=== PATIENT | female | born 1935 | race Asian ===

== ENCOUNTER 2019-10-21 14:40 | Emergency (ER) | payer MEDICARE, OTHER ==
[~2019-10-21] VITALS: Ht 165.1 cm; Wt 58.0 kg
--- NOTE | 2019-10-21 15:06 | NUR ---
THIS IS AN 84 YO FEMALE BIB EMS FROM [facility] FOR MGL[facility] DOWN ELEVATOR, DENIES LOC, DENIES MIDLINE NECK OR BACK PAIN. A&OX4. TAKES COUMADIN FOR POSSIBLE AFIB (PATIENT UNSURE OF WHAT ARRHYTHMIA SHE HAS, STATES "IT'S IRREGULAR"), DENIES ANY HX OF TX OR STROKE. C/O PAIN TO LEFT SIDE OF HEAD, NO DEFORMITY NOTED, TENDER TO PALPATION. BRUISES/ABRASIONS NOTED TO RIGHT HIP, LEFT KNEE, AND BILATERAL ELBOWS. MONITORING IN PLACE, VSS, NADN. CALL LIGHT IN REACH.
[2019-10-21] MEDS ORDERED: HYDROcodone/APAP 5/325 TABLET ONE (15:09)
--- NOTE | 2019-10-21 15:12 | NUR ---
PATIENT TO IMAGING
[2019-10-21] MEDS ORDERED: HYDROcodone/APAP 5/325 TABLET PO ONE (15:30)
--- NOTE | 2019-10-21 15:39 | NUR ---
PATIENT MEDICATED PER EMAR, TOELRATED WELL
[2019-10-21 16:19] LABS: INTERNATIONAL NORMALIZED RATIO 3.4 (0.93-1.1); PROTHROMBIN TIME 35.5 Seconds (9.6-11.5)
[2019-10-21 16:30] VITALS: BP 166/108
--- NOTE | 2019-10-21 17:14 | NUR ---
Patient/Caregiver given discharge instructions and they have confirmed that they understand the instructions. Patient ambulatory with steady gait in room, wheeled to discharge for patient comfort
== END 2019-10-21 17:16 | disposition home or self-care (01) ==
LOC: ED 17:05
DX: S63.502A Unspecified sprain of left wrist, initial encounter (principal); S70.01XA Contusion of right hip, initial encounter; S50.312A Abrasion of left elbow, initial encounter; S80.212A Abrasion, left knee, initial encounter; S09.90XA Unspecified injury of head, initial encounter; R42 Dizziness and giddiness; I10 Essential (primary) hypertension; I48.91 Unspecified atrial fibrillation; Z79.01 Long term (current) use of anticoagulants; W10.0XXA Fall (on)(from) escalator, initial encounter; Y93.89 Activity, other specified; Y92.89 Other specified places as the place of occurrence of the external cause; Y99.8 Other external cause status
CPT/HCPCS: 36415; 70450; 72190; 85610; 99285